=== PATIENT | female | born 1975 | race Two or more races ===

== ENCOUNTER 2016-06-20 10:40 | Emergency (ER) | payer BC ==
[2016-06-20 10:56] VITALS: BP 106/78; PULSE 78; TEMP 98.1; BMI 23.1
--- NOTE | 2016-06-20 11:11 | PDOC ---
History of Present Illness - General Chief Complaint: Injury Stated Complaint: LEFT KNEE & ANKLE PAIN Time Seen by Provider: 06/20/16 11:02 - History of Present Illness Initial Comments: 06/20/16 11:09 40-year-old female with a negative past medical history She is on no medications, NKDA She states that today she was walking in the park with her children and , and she tripped and fell in a depression She states that she twisted her ankle and injured her knee She is complaining of pain on her lateral ankle, and some milder pain in the knee, although she feels that the knee pain may be radiating up from the ankle She denies any hip pain She denies any head injury or loss of consciousness She denies any other injury Past History - Past Medical History Allergies/Adverse Reactions: Allergies Allergy/AdvReac Type Severity Reaction Status Date / Time No Known Allergies Allergy Verified 06/20/16 10:57 Home Medications: Ambulatory Orders NK [No Known Home Medication] 06/20/16 - Psycho/Social/Smoking Cessation Hx Anxiety: No Suicidal Ideation: No Smoking History: Never smoked Hx Alcohol Use: No Drug/Substance Use Hx: No Substance Use Type: None *Physical Exam - Vital Signs Last Vital Signs Temp Pulse Resp BP Pulse Ox 98.1 F 78 15 106/78 98 06/20/16 10:49 06/20/16 10:49 06/20/16 10:49 06/20/16 10:49 06/20/16 10:49 - Physical Exam Comments: 06/20/16 11:11 Physical exam Last Vital Signs Temp Pulse Resp BP Pulse Ox 98.1 F 78 15 106/78 98 06/20/16 10:49 06/20/16 10:49 06/20/16 10:49 06/20/16 10:49 06/20/16 10:49 Patient is alert and answering questions Head is normocephalic and atraumatic Left lower extremity - There is full range of motion of the left hip There is full range of motion of the left knee The quadriceps tendon and patellar tendon and cruciates and collaterals are intact There is no tenderness on the meniscal line There is minimal tenderness with anterior draw, but the knee is stable There is no knee bruising or swelling The Achilles tendon is intact, and there is no heel tenderness Left ankle- There is tenderness on the lateral malleolus, into the base of the fifth metatarsal, and some swelling on the lateral malleolus There is no tenderness on the medial malleolus The toes are warm, and the patient is able to wiggle her toes without difficulty Sensation is intact in the toes The dorsalis pedis pulse is intact ED Treatment Course - RADIOLOGY Radiology Studies Ordered: Category Date Time Status ANKLE & FOOT-LEFT* [RAD] Stat Radiology 06/20/16 11:08 Ordered KNEE 3 POS-LEFT [RAD] Stat Radiology 06/20/16 11:08 Ordered Medical Decision Making - Medical Decision Making 06/20/16 11:14 Most likely inversion sprain of the left ankle Will check x-rays of the left ankle and left knee Last menstrual period 2-3 weeks ago-normal and on time 06/20/16 12:12 Left knee series NAD Left ankle series NAD Impression-inversion sprain of the left ankle, and strain of the left knee Mateo, crutches, pain control, orthopedic follow-up if not improving *DC/Admit/Observation/Transfer Diagnosis at time of Disposition: Inversion sprain of left ankle, Strain of knee - Discharge Dispostion Disposition: HOME Condition at time of disposition: Stable - Referrals Referrals: Chester Watkins MD [Primary Care Provider] - Mainor Liu MD [Staff Physician] - Call tomorrow - Patient Instructions Printed Discharge Instructions: How to Use Crutches, Ankle Sprain, DI for Ankle Sprain Additional Instructions: Mateo and crutches, no weightbearing for the first 2 days, then you may gradually resume weightbearing Ice packs and elevation for the next 24-48 hours off and on Tylenol or Motrin for pain Follow-up with orthopedics if you are not starting to improve in 2-3 days - Post Discharge Activity Work/School Note: Back to Work
== END 2016-06-20 12:40 | disposition home or self-care (01) ==
LOC: FER 10:40
DX: S93.402A Sprain of unspecified ligament of left ankle, initial encounter (principal); M25.562 Pain in left knee; X58.XXXA Exposure to other specified factors, initial encounter; Y93.01 Activity, walking, marching and hiking; Y92.830 Public park as the place of occurrence of the external cause
CPT/HCPCS: 73562-TC-LT; 73610-TC-LT; 73630-TC-LT; 99281-25

== ENCOUNTER 2023-06-05 21:24 | Emergency (ER) | payer BC ==
[2023-06-05 21:34] VITALS: BP 157/94; TEMP 97.7; BMI 24.0
[2023-06-05] MEDS: DEXAMETHASONE SOD PHOSPHATE 10 MG/1 ML VIAL IM ONE (21:34)
[2023-06-05 21:56] VITALS: RESP 16
[2023-06-05 22:53] VITALS: PULSE 68
== END 2023-06-05 23:01 | disposition home or self-care (01) ==
LOC: FER 21:24
PROC: 3E023GC Introduction of Other Therapeutic Substance into Muscle, Percutaneous Approach (ICD-10-PCS; principal; 2023-06-05)
DX: T78.40XA Allergy, unspecified, initial encounter (principal); R09.81 Nasal congestion; R22.0 Localized swelling, mass and lump, head; J30.2 Other seasonal allergic rhinitis
CPT/HCPCS: 99284-25; J1100